=== PATIENT | female | born 1970 | race Caucasian/White ===

== ENCOUNTER 2016-10-28 13:47 | Emergency (ER) | payer BC ==
--- NOTE | ~2016-10-28 | CT4 ---
[facility] A Service of [facility] / [facility] RADIOLOGY TEXT RESULTS PATIENT: ANTHONY PALACIOS LOCATION: [facility] : 74 UNIT #: [id number] AGE: [address]: Jean Brown MD SEX: F ORDER DR: [id number] [facility] [address] [place], [place] [address] [id number] MR#: [id number] #: [id number] NAME: NATHONY PALACIOS. : 1970 SEX: F STUDY DATE/TIME: 10/28/2016 13:59 UNIT: [facility] ROOM: STUDY DESCRIPTION: CT Abd and Pelv Wo Cont Attending Physician: Jean Brown M.D. Ordering Physician: Jean Brown M.D. Primary Care Physician: Javon Cardoso M.D. MEDICAL IMAGING REPORT This report is preliminary unless electronic signature is present EXAM CT abdomen and pelvis, 10/28/2016. HISTORY Pain. Bilateral flank pain. Nausea for 2 weeks. Abdomen pain, nausea 2 weeks, worse today. No history of kidney stones. TECHNIQUE CT of the abdomen and pelvis performed without administration of oral or intravenous contrast. This CT exam was performed with one or more of the following radiation dose reduction techniques: automatic exposure control, adjustment of mA and/or kV according to patient size, and iterative reconstruction. COMPARISON STUDIES 09/15/2015 FINDINGS Minimal dependent atelectasis at lung bases. Inferior heart and pericardium unremarkable. The liver is unremarkable. Nonobstructing gallstones in otherwise unremarkable gallbladder. Similar appearance on prior study. No biliary ductal dilatation or indication of choledocholithiasis. Spleen, pancreas, adrenal glands, kidneys unremarkable. No hydronephrosis or nephrolithiasis. No perinephric inflammatory change and no secondary signs of recent stone passage. Retroperitoneal and pelvic calcifications unchanged from prior study and felt to represent phleboliths. CT PELVIS: The urinary bladder is unremarkable. Patient is status post hysterectomy. Patient appears to retain bilateral ovaries. No clearly suspicious adnexal finding. Trace amount of free fluid in pelvis. Not a [facility] A Service of [facility] & [facility] RADIOLOGY TEXT RESULTS PATIENT: ANTHONY PALACIOS LOCATION: [facility] #: [id number] : 74 UNIT #: [id number] AGE: [address]: Jean Brown MD SEX: F ORDER DR: drainable fluid collection. No pelvic or retroperitoneal adenopathy. Distal esophagus, stomach, small bowel, appendix unremarkable. Colon shows mild uncomplicated diverticulosis. The unopacified vascular structures appear normal in caliber. Bony structures show degenerative changes, probably most pronounced at L5-S1 with marked disc space narrowing, vacuum disc phenomena, and posterior disc osteophyte complex. There does not appear to be significant spinal canal narrowing. Mild bilateral foraminal narrowing. IMPRESSION 1. No renal calculi or obstruction. No perinephric inflammatory change and no evidence of recent stone passage. 2. Uncomplicated cholelithiasis. 3. Pancreas and appendix unremarkable. 4. Mild uncomplicated colonic diverticulosis. 5. Trace free fluid in pelvis. Not a drainable fluid collection and likely physiologic in nature. 6. Status post hysterectomy with retention of bilateral ovaries. No suspicious appearing adnexal structure. Dictated by... Valentin Cortes M.D. THIS IS AN ELECTRONICALLY VERIFIED REPORT Valentin Cortes M.D. at 10/29/2016 6:09 PM JAH/marj TD: 10/28/2016 15:57 JOB #: [id number] MEDICAL IMAGING REPORT Page 1 of 1 COPY
[2016-10-28 14:06] LABS: BASOPHIL% 0.5 % (0-2.5); DIFF IND NO; EOSINOPHIL# 0.2 X10e3 (0-0.7); EOSINOPHIL% 2.3 % (0.0-7.0); HEMATOCRIT 42.8 % (35.0-45.0); HEMOGLOBIN 14.4 gm/dL (12.0-16.0); LYMPHOCYTE# 2.3 X10e3 (1.0-3.5); LYMPHOCYTE% 29.7 % (17.0-45.0); MEAN CELL VOLUME 93.3 FL (83-96); MEAN CORPUSCULAR HEMOGLOBIN 31.5 PG (28-34); MEAN CORPUSCULAR HGB CONC 33.7 g/dL (30-36); MEAN PLATELET VOLUME 8.3 FL (6.5-11.5); MONOCYTE# 0.6 X10e3 (0-1.0); MONOCYTE% 7.7 % (3.0-12.0); NEUTROPHIL# 4.6 X10e3 (1.5-7.1); NEUTROPHIL% 59.8 % (40-75); PLATELET COUNT 253 X10e3 (140-420); RED BLOOD COUNT 4.58 X10e (3.90-5.30); RED CELL DISTRIBUTION WIDTH 12.7 % (11.0-15.5); WHITE BLOOD COUNT 7.6 X10e3 (4.0-10.5)
[2016-10-28 14:29] LABS: ALBUMIN SERUM 4.1 g/dL (3.5-5.0); BILIRUBIN, DIRECT 0.1 mg/dL (0.0-0.2); BILIRUBIN,INDIRECT 0.5 mg/dL (0.0-0.9); BILIRUBIN,TOTAL 0.6 mg/dL (0.2-2.0); BUN/CREATININE RATIO 15.71; CALCIUM SERUM 9.1 mg/dL (8.4-10.2); CREATININE SERUM 0.7 mg/dL (0.6-1.4); GLOM FILT RATE Estimated 105.4 mL/min (>60); PROTEIN TOTAL SERUM 7.3 g/dL (6.0-8.3)
== END 2016-10-28 16:01 | disposition home or self-care (01) ==
LOC: CED 13:47
PROVIDERS: Emergency Medicine
DX: K80.70 Calculus of gallbladder and bile duct without cholecystitis without obstruction (principal); Z90.710 Acquired absence of both cervix and uterus
CPT/HCPCS: 36415; 74176; 80048; 80076; 82150; 83690; 85025; 96361; 96372; 96374; 99284; J0500; J2405